=== PATIENT | female | born 1950 | race Caucasian/White ===

== ENCOUNTER → 2017-06-10 | Outpatient (CLI) | payer OTHER | END | disposition home or self-care (01) | LOC: CFH 12:15 | PROVIDERS: ATTEND Family Medicine | DX: Z12.31 Encounter for screening mammogram for malignant neoplasm of breast (principal) | CPT/HCPCS: G0202 ==

== ENCOUNTER → 2018-06-19 | Outpatient (CLI) | payer OTHER | END | disposition home or self-care (01) | LOC: CFH 09:34 | PROVIDERS: ATTEND Family Medicine | DX: Z12.31 Encounter for screening mammogram for malignant neoplasm of breast (principal) | CPT/HCPCS: 77067 ==

== ENCOUNTER 2019-04-04 22:28 | Emergency (ER) | payer OTHER ==
[~2019-04-04] VITALS: Ht 162.6 cm; Wt 74.8 kg
--- NOTE | 2019-04-04 22:43 | NUR ---
PT REPORTS LLQ AND FLANK PAIN X 4 DAYS. PT DENIES HEMATURIA/DYSURIA. PT REPORTS EPISODE OF VOMITING DUE TO PAIN. PT UP TO RR WITH STANDBY ASSSIST, TOLERATED TRANSFER WELL
[2019-04-04] MEDS ORDERED: PROP10TA16 PO (22:50)
[2019-04-04] MEDS ORDERED: UBID100C41 PO (22:50)
[2019-04-04] MEDS ORDERED: TOPI15CA10 PO (22:50)
[2019-04-04] MEDS ORDERED: MONT4GRA2 PO (22:50)
[2019-04-04] MEDS ORDERED: ATOR10TA9 PO (22:50)
[2019-04-04] MEDS ORDERED: SODIUM CHLORIDE FLUSH 10ML SYR IVF ONE (23:00)
[2019-04-04] MEDS ORDERED: SODIUM CHLORIDE 0.9% 1,000ML IVBOLUS ONE (23:00)
[2019-04-04] MEDS ORDERED: ONDANSETRON 2MG/ML, 2ML IVPush ONE (23:00)
[2019-04-04] MEDS ORDERED: MORPHINE SULFATE 4 MG/ML, 1ML IVPush PRN (23:00)
[2019-04-04] MEDS ORDERED: ONDANSETRON 2MG/ML, 2ML ONE (23:03)
[2019-04-04] MEDS ORDERED: MORPHINE SULFATE 4 MG/ML, 1ML ONE (23:03)
--- NOTE | 2019-04-04 23:08 | NUR ---
IV SITE SITE STARTED, LABS DRAWN. PT MEDICATED OK NOV. MONITORS IN PLACE, SIDERAIL SUP X2, CALL LIGHT WITHIN REACH. PROVIDED PT WITH URINE CU, PT UNABLE TO VOID AT THIS TIME. AWAITING LAB RESULTS AND CT
[2019-04-04 23:11] LABS: BASOPHILS # (AUTO) 0.05 x10^3/uL (0-0.1); BASOPHILS % (AUTO) 1 % (0-1); EOSINOPHILS # (AUTO) 0.25 x10^3/uL (0-0.4); EOSINOPHILS % (AUTO) 3 % (1-7); LYMPHOCYTES # (AUTO) 1.57 x10^3/uL (1-3.4); LYMPHOCYTES % (AUTO) 18 % (22-44); MD NO; MEAN CORPUSCULAR HEMOGLOBIN 28.8 pg (27.0-34.8); MEAN CORPUSCULAR HGB CONC 32.8 g/dL (32.4-35.8); MEAN CORPUSCULAR VOLUME 87.8 fL (80-100); MEAN PLATELET VOLUME 9.7 fL (7.4-10.4); MONOCYTES # (AUTO) 0.64 x10^3/uL (0.2-0.8); MONOCYTES % (AUTO) 7 % (2-9); NEUTROPHILS # (AUTO) 6.47 x10^3/uL (1.8-6.8); NEUTROPHILS % (AUTO) 72 % (42-75); PLATELET COUNT 211 x10^3/uL (130-400); RED BLOOD COUNT 4.44 x10^6/uL (3.82-5.3); RED CELL DISTRIBUTION WIDTH 14.7 % (9.6-15.2)
[2019-04-04 23:21] LABS: ALANINE AMINOTRANSFERASE 22 U/L (12-78); ALBUMIN 3.7 g/dL (3.4-5.0); ANION GAP 8 mmol/L (5-15); CALCIUM 8.8 mg/dL (8.5-10.1); CHLORIDE 112 mmol/L (98-107); CREATININE 1.15 mg/dL (0.55-1.02)
[2019-04-04 23:24] LABS: ALKALINE PHOSPHATASE 143 U/L (45-117); BILIRUBIN,TOTAL 0.2 mg/dL (0.2-1.0); TOTAL PROTEIN 7.2 g/dL (6.4-8.2)
[2019-04-04] MEDS ORDERED: OMNIPAQUE 350 MG/ML, 100ML BOTTLE ONE (23:54)
--- NOTE | 2019-04-05 00:03 | NUR ---
PT UP TO RR WITH STANDBY ASSIST, TOLERATED TRANSFER WELL
--- NOTE | 2019-04-05 00:10 | NUR ---
URINE SAMPLE TAKEN TO LAB
[2019-04-05 00:28] LABS: MICROSCOPIC AUTO
[2019-04-05 00:31] LABS: CULTURE INDICATED? YES
[2019-04-05 01:00] VITALS: BP 126/66
[2019-04-05] MEDS ORDERED: KETOROLAC 60 MG/2 ML IVPush ONE (01:00)
[2019-04-05] MEDS ORDERED: KETOROLAC 30 MG/1 ML ONE (01:11)
--- NOTE | 2019-04-05 01:16 | NUR ---
PT MEDICATED PER NOV. RESTING ON GURNEY, CALL LIGHT WITHIN REACH. DENIES FURTHER NEEDS
[2019-04-12] MEDS ORDERED: DOCU-180 PO (12:46)
[2019-04-12] MEDS ORDERED: LEVO75TA PO (12:46)
[2019-04-12] MEDS ORDERED: MAGN300C PO (12:46)
[2019-04-12] MEDS ORDERED: TOPI25TA8 PO (12:46)
[2019-04-12] MEDS ORDERED: PROP10TA16 PO (12:46)
[2019-04-12] MEDS ORDERED: ONDA4TAB7 PO (12:46)
[2019-04-12] MEDS ORDERED: MONT10TA9 PO (12:46)
[2019-04-12] MEDS ORDERED: INUL1TAB4 PO (12:46)
== END 2019-04-05 01:53 | disposition home or self-care (01) ==
LOC: ED 23:59
DX: N13.2 Hydronephrosis with renal and ureteral calculous obstruction (principal); I10 Essential (primary) hypertension; E78.5 Hyperlipidemia, unspecified; E86.0 Dehydration
CPT/HCPCS: 36415; 74177; 80053; 81001; 83690; 85025; 87086; 96361; 96374; 96375; 99284; J1885; J2270; J2405; J7030; Q9967

== ENCOUNTER 2019-04-11 08:16 | Outpatient (CLI) | payer OTHER | END 2019-04-11 23:59 | disposition home or self-care (01) | LOC: CFH 08:16 | PROVIDERS: ATTEND Urology | DX: N20.1 Calculus of ureter (principal) | CPT/HCPCS: 74018 ==

== ENCOUNTER 2019-04-12 12:02 | Day surgery (SDC) | payer OTHER ==
[~2019-04-12] VITALS: Ht 162.6 cm; Wt 75.4 kg
[2019-04-12 12:47] VITALS: BP 134/84
== END 2019-04-12 18:00 | disposition home or self-care (01) ==
LOC: OUT 12:02
PROVIDERS: ATTEND Urology
DX: N20.1 Calculus of ureter (principal); K21.9 Gastro-esophageal reflux disease without esophagitis; G43.909 Migraine, unspecified, not intractable, without status migrainosus; M10.9 Gout, unspecified; E78.5 Hyperlipidemia, unspecified; Z79.899 Other long term (current) drug therapy; Z87.442 Personal history of urinary calculi; Z88.8 Allergy status to other drugs, medicaments and biological substances; Z86.73 Personal history of transient ischemic attack (TIA), and cerebral infarction without residual deficits; Z96.649 Presence of unspecified artificial hip joint; Z80.1 Family history of malignant neoplasm of trachea, bronchus and lung
CPT/HCPCS: 52353; 74018; 81001; 82360; 88300; 93005; C1769; J0744; J1100; J2250; J2405; J2704; J3010; J7120; 76000

== ENCOUNTER 2019-08-07 08:18 | Outpatient (CLI) | payer OTHER ==
[~2019-08-07 08:18] MED LIST: ATOR10TA9 PO; DOCU-180 PO; INUL1TAB4 PO; LEVO75TA PO; MAGN300C PO; MONT10TA9 PO; MONT4GRA2 PO; ONDA4TAB7 PO; PROP10TA16 PO; TOPI15CA10 PO; TOPI25TA8 PO; UBID100C41 PO
== END 2019-08-07 23:59 | disposition home or self-care (01) ==
LOC: CFH 08:18
PROVIDERS: ATTEND Family Medicine
DX: R92.2 Inconclusive mammogram (principal); N64.4 Mastodynia
CPT/HCPCS: 77066; G0279

== ENCOUNTER 2020-01-10 10:01 | Outpatient (CLI) | payer OTHER, MEDICARE ==
[~2020-01-10 10:01] MED LIST changes: +MONT10TA11 PO; -MONT10TA9 PO
[2020-01-10] MEDS ORDERED: ATOR10TA9 PO (10:49)
[2020-01-10] MEDS ORDERED: FOLI200T13 PO (10:49)
[2020-01-10] MEDS ORDERED: ALPH300C PO (10:49)
[2020-01-10] MEDS ORDERED: CO Q10 PO (10:49)
[2020-01-10] MEDS ORDERED: CETI10TA26 PO (10:49)
[2020-01-10] MEDS ORDERED: LANS15CA60 PO (11:01)
[2020-01-15] MEDS ORDERED: HYDR-3240 PO (09:20)
[2020-01-15] MEDS ORDERED: LEVO125T PO (09:22)
[2020-01-15] MEDS ORDERED: CALC400T6 PO (09:24)
== END 2020-01-10 23:59 | disposition home or self-care (01) ==
LOC: STAR 10:01
PROVIDERS: ATTEND Surgery
DX: Z01.818 Encounter for other preprocedural examination (principal); Z11.59 Encounter for screening for other viral diseases; R94.31 Abnormal electrocardiogram [ECG] [EKG]
CPT/HCPCS: 36415; 84432; 86800; 93005; U0001

== ENCOUNTER 2020-01-17 13:17 | Observation (INO) | payer MEDICARE, OTHER ==
[~2020-01-17] VITALS: Ht 162.6 cm; Wt 78.2 kg
[~2020-01-17 13:17] MED LIST changes: +ALPH300C PO; +CALC400T6 PO; +CETI10TA26 PO; +CO Q10 PO; +FOLI200T13 PO; +HYDR-3240 PO; +LANS15CA60 PO; +LEVO125T PO
--- NOTE | 2020-01-17 14:06 | NUR ---
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 RR even and unlabored is splinting the left side when she takes deep breaths. Attached to monitors (Cardiac, Pulse Ox, and BP). Provider at bedside. Recently discharged from the hospital after a thyroidectomy on Tuesday.
[2020-01-17] MEDS ORDERED: SODIUM CHLORIDE 0.9% 1,000 ML IV ONE (14:36)
--- NOTE | 2020-01-17 14:46 | NUR ---
report from michelle arriaga.
[2020-01-17 15:14] LABS: BASOPHILS # (AUTO) 0.04 x10^3/uL (0-0.1); BASOPHILS % (AUTO) 0 % (0-1); EOSINOPHILS % (AUTO) 2 % (1-7); LYMPHOCYTES # (AUTO) 1.67 x10^3/uL (1-3.4); LYMPHOCYTES % (AUTO) 20 % (22-44); MD NO; MEAN CORPUSCULAR HEMOGLOBIN 29.1 pg (27.0-34.8); MEAN CORPUSCULAR VOLUME 88.1 fL (80-100); MEAN PLATELET VOLUME 9.9 fL (7.4-10.4); MONOCYTES # (AUTO) 0.69 x10^3/uL (0.2-0.8); MONOCYTES % (AUTO) 8 % (2-9); NEUTROPHILS # (AUTO) 5.74 x10^3/uL (1.8-6.8); NEUTROPHILS % (AUTO) 69 % (42-75); PLATELET COUNT 206 x10^3/uL (130-400); RED BLOOD COUNT 4.31 x10^6/uL (3.82-5.3); RED CELL DISTRIBUTION WIDTH 14.9 % (9.6-15.2)
--- NOTE | 2020-01-17 15:14 | NUR ---
pt resting in room. vss. piv established adn labs drawn. ivf infusing. no needs expressed. awaiting lab results and cta.
[2020-01-17 15:25] LABS: ALBUMIN 3.4 g/dL (3.4-5.0); ANION GAP 7 mmol/L (5-15); CHLORIDE 106 mmol/L (98-107)
[2020-01-17 15:31] LABS: ALANINE AMINOTRANSFERASE 50 U/L (12-78); ALKALINE PHOSPHATASE 156 U/L (45-117); BILIRUBIN,TOTAL 0.2 mg/dL (0.2-1.0); CREATININE 0.98 mg/dL (0.55-1.02); TOTAL PROTEIN 7.1 g/dL (6.4-8.2); TROPONIN I < 0.015 ng/mL (0.000-0.045)
--- NOTE | 2020-01-17 15:45 | NUR ---
pt to ct.
--- NOTE | 2020-01-17 15:58 | NUR ---
pt back from ct.
[2020-01-17] MEDS ORDERED: OMNIPAQUE 350 MG/ML, 75ML BOTTLE ONE (16:04)
--- NOTE | 2020-01-17 16:19 | NUR ---
PT RESTING IN ROOM. VSS. NO NEEDS EXPRESSED. CALL LIGHT WITHIN REACH. ALL RESULTS BACK AT THIS TIME. CHART UP FOR RECHECK.
[2020-01-17] MEDS ORDERED: ONDANSETRON 2MG/ML, 2ML IVPush PRN (18:00)
[2020-01-17] MEDS ORDERED: POLYETHYLENE GLYCOL 17 GM PACKET PO PRN (18:00)
[2020-01-17] MEDS ORDERED: hydrALAzine 20 MG/ML, 1ML IVPush PRN (18:00)
[2020-01-17] MEDS ORDERED: TRAZODONE 50MG TABLET PO PRN (18:00)
[2020-01-17] MEDS ORDERED: LIDODERM 5% PATCH TD PRN (18:00)
[2020-01-17] MEDS ORDERED: BACLOFEN 10 MG TABLET PO PRN (18:00)
[2020-01-17] MEDS ORDERED: LACTATED RINGERS 1,000 ML IV SCH (18:00)
[2020-01-17] MEDS ORDERED: GABAPENTIN 300 MG CAPSULE PO PRN (18:00)
[2020-01-17] MEDS ORDERED: ENOXAPARIN 40 MG/0.4 ML SQ SCH (18:00)
[2020-01-17] MEDS ORDERED: DOCUSATE 100 MG CAPSULE PO PRN (18:00)
[2020-01-17] MEDS ORDERED: ONDANSETRON ODT 4 MG PO PRN (18:00)
[2020-01-17] MEDS ORDERED: BUTALB/APAP/CAFFEINE 50MG/325MG/40MG PO PRN ×2 (18:00)
[2020-01-17] MEDS ORDERED: LABETALOL 5MG/ML, 20ML IVPush PRN (18:00)
[2020-01-17 18:16] LABS: TROPONIN I < 0.015 ng/mL (0.000-0.045)
[2020-01-17 18:25] VITALS: BP 134/81
[2020-01-17 20:03] VITALS: BP 109/64
[2020-01-17 23:45] LABS: TROPONIN I < 0.015 ng/mL (0.000-0.045)
[2020-01-18 02:05] VITALS: BP 110/73
[2020-01-18 06:19] LABS: BASOPHILS # (AUTO) 0.02 x10^3/uL (0-0.1); BASOPHILS % (AUTO) 0 % (0-1); EOSINOPHILS # (AUTO) 0.15 x10^3/uL (0-0.4); EOSINOPHILS % (AUTO) 3 % (1-7); LYMPHOCYTES # (AUTO) 1.46 x10^3/uL (1-3.4); LYMPHOCYTES % (AUTO) 26 % (22-44); MD NO; MEAN CORPUSCULAR HEMOGLOBIN 28.8 pg (27.0-34.8); MEAN CORPUSCULAR HGB CONC 32.7 g/dL (32.4-35.8); MEAN CORPUSCULAR VOLUME 87.9 fL (80-100); MEAN PLATELET VOLUME 9.8 fL (7.4-10.4); MONOCYTES # (AUTO) 0.41 x10^3/uL (0.2-0.8); MONOCYTES % (AUTO) 7 % (2-9); NEUTROPHILS # (AUTO) 3.69 x10^3/uL (1.8-6.8); NEUTROPHILS % (AUTO) 64 % (42-75); PLATELET COUNT 187 x10^3/uL (130-400); RED BLOOD COUNT 4.01 x10^6/uL (3.82-5.3); RED CELL DISTRIBUTION WIDTH 14.7 % (9.6-15.2)
[2020-01-18 06:23] LABS: ANION GAP 7 mmol/L (5-15); CALCIUM 7.1 mg/dL (8.5-10.1); CHLORIDE 111 mmol/L (98-107)
[2020-01-18 08:30] VITALS: BP 113/71
== END 2020-01-18 14:07 | disposition home or self-care (01) ==
LOC: ED 13:43 → EDIP 17:34 → 5SO 18:06
PROVIDERS: ADMIT Family Medicine; ATTEND Family Medicine
DX: R07.9 Chest pain, unspecified (principal); G43.909 Migraine, unspecified, not intractable, without status migrainosus; E83.51 Hypocalcemia; E89.0 Postprocedural hypothyroidism; I10 Essential (primary) hypertension; M77.9 Enthesopathy, unspecified; R74.8 Abnormal levels of other serum enzymes; I25.2 Old myocardial infarction; R94.4 Abnormal results of kidney function studies; E78.5 Hyperlipidemia, unspecified; Z86.73 Personal history of transient ischemic attack (TIA), and cerebral infarction without residual deficits; Z79.899 Other long term (current) drug therapy
CPT/HCPCS: 36415; 71275; 80048; 80053; 83605; 84484; 85025; 85379; 93005; 96372; 99285; G0378; J1650; J7030; J7120; Q9967

== ENCOUNTER → 2020-04-17 | Outpatient (CLI) | payer MEDICARE | END | disposition home or self-care (01) | LOC: CFH 11:05 | PROVIDERS: ATTEND Family Medicine | DX: M85.80 Other specified disorders of bone density and structure, unspecified site (principal); Z78.0 Asymptomatic menopausal state | CPT/HCPCS: 77080 ==

== ENCOUNTER → 2020-08-21 | Outpatient (CLI) | payer MEDICARE ==
[~2020-08-21] MED LIST changes: -CETI10TA26 PO; +CETI10TA76 PO; -MONT10TA11 PO; +MONT10TA96 PO
== END | disposition home or self-care (01) ==
LOC: CFH 14:59
PROVIDERS: ATTEND Family Medicine
DX: L29.9 Pruritus, unspecified (principal)
CPT/HCPCS: 77062; 77066; G0279